=== PATIENT | female | born 1985 | race Caucasian/White ===

== ENCOUNTER 2017-11-01 19:27 | Emergency (ER) | payer OTHER ==
[~2017-11-01] VITALS: Ht 175.3 cm; Wt 72.6 kg
[~2017-11-01 19:27] MED LIST: ATIVAN1 M1 PO; AVIANE-28 TABL1 EACH PO; FOLIC ACID 1 MG PO; MAGNESIUM500 M2 PO; MULTI VITAMINS1 TAB PO; NEURONTIN300 M1 PO; PREDNISONE10 M2 PO; VITAMIN B1100 MG PO
--- NOTE | 2017-11-01 20:24 | ED PSYCHIATRIC COMPLAINT ---
History of Present Illness General Chief Complaint: ETOH/Drug Related Complaint Stated Complaint: "DETOX" Source: patient, old records Exam Limitations: no limitations Vital Signs & Intake/Output Vital Signs & Intake/Output Vital Signs Date Time Temp Pulse Resp B/P B/P Pulse O2 O2 Flow FiO2 Mean Ox Delivery Rate 11/02 0649 98.4 84 20 109/80 11/02 0648 98.4 84 20 109/80 100 Room Air Room Air 11/02 0050 132 11/01 2310 98.1 114 18 130/88 11/01 2304 98.1 114 16 130/88 98 Room Air 11/01 2199 97.4 127 18 122/86 99 Room Air 11/01 2053 98.3 128 16 112/86 100 Room Air 11/01 2049 98.3 128 20 112/96 11/01 2045 Room Air 11/01 194 98.1 126 18 137/67 98 Room Air ED Intake and Output 11/02 0000 11/01 1200 Intake Total 200 Output Total Balance 200 Intake, Oral 200 Patient 160 lb Weight Allergies Coded Allergies: No Known Allergies (12/22/15) Reconcile Medications Lorazepam (Ativan) (Unknown Strength) TABLET (Unknown Dose) PO AD PRN ANXIETY (Reported) Triage Note: PT TO TRIAGE FROM HOME REQUESTING ETOH DETOX. LAST DETOX IN 2016. REPORTS NOT ALWAYS A DAILY DRINKING AND STATES "ONLY A LITTLE TODAY." PT POOR HISTORIAN, UNABLE TO GIVE MUCH DETAIL ABOUT ETOH CONSUMPTION BUT STATES LAST DRINK 4-5 HOURS AGO. DENIES ANY OTHER ILLICIT DRUG USE. PT CALM AND COOPERATIVE WITH FAMILY PRESENT. HAS STRONG SUPPORT SYSTEM AT HOME AND MOTIVATED FOR HELP. POLICIES AND PROCEDURES EXPLAINED WITH PATIENT AND FAMILY. Triage Nurses Notes Reviewed? yes Onset: Just prior to arrival Duration: hour(s):, constant, continues in ED Timing: recent history Severity: moderate, severe Associated Symptoms: anxiety, impaired concentration LMP (ages 10-50): unknown : No Patient currently breastfeeds: No HPI: Patient presents for alcohol detox as it is been affecting her interpersonal relationships and work. She reports her last drink was several hours prior to admission. She complains of anxiety nausea feeling jittery and shaking with palpitations. She denies alcohol withdrawal seizures. Denies fever chills vomiting diarrhea chest pain cough shortness breath headache dysuria rash bleeding suicidal ideation homicidal ideation hallucination (Se ROCHEDino) Past History Travel History Traveled to [place] past 21 day No Medical History Any Pertinent Medical History? see below for history Neurological: DEPRESSION,ANXIETY EENT: NONE Cardiovascular: SVT Respiratory: NONE Hepatic: NONE Renal: NONE Musculoskeletal: NONE Psychiatric: alcohol dependence, ? depressive disorder NOS Substance-induced mood disorder Endocrine: NONE Blood Disorders: NONE Cancer(s): NONE CHARGE WEIGHER/Reproductive: NONE History of MRSA: No History of VRE: No History of CDIFF: No Surgical History Surgical History: non-contributory Psychosocial History Who do you live with Family Services at Home None What is your primary language Togolese Tobacco Use: Never used ETOH Use: heavy use Family History Family History, If Any: Relation not specified for: *No pertinent family history Hx Contributory? No (Dino Saez MD) Review of Systems Review of Systems Constitutional: Reports: see HPI, malaise. EENTM: Reports: no symptoms. Respiratory: Reports: no symptoms. Cardiovascular: Reports: no symptoms. GI: Reports: see HPI, nausea. Genitourinary: Reports: no symptoms. Musculoskeletal: Reports: no symptoms. Skin: Reports: no symptoms. Neurological/Psychological: Reports: see HPI, anxiety, emotional problems. Hematologic/Endocrine: Reports: no symptoms. Immunologic/Allergic: Reports: no symptoms. All Other Systems: Reviewed and Negative (Dino Saez MD) Physical Exam Physical Exam General Appearance: well developed/nourished, alert, awake, anxious, mild distress Head: atraumatic, normal appearance Eyes: Bilateral: normal appearance, PERRL, EOMI. Ears, Nose, Throat: normal pharynx, normal ENT inspection, hearing grossly normal Neck: normal inspection, supple, full range of motion, no midline tenderness Respiratory: normal breath sounds, chest non-tender, no respiratory distress, quiet respiration, lungs clear Cardiovascular: regular rate/rhythm, normal peripheral pulses, norml femoral pulses equa Gastrointestinal: soft, non-tender Extremities: normal range of motion, no ligament instability Neurological/Psychiatric: no motor/sensory deficits, awake, alert, anxious, program support assistant II-XII nml as tested, oriented x 3 Appearance/Memory/Insight: disheveled, impaired insight Behavoir/Eye Contact/Speech: cooperative, normal speech Skin: intact, normal color, warm/dry SAD PERSONS Done? patient not suicidal (Dino Saez MD) Progress Differential Diagnosis: drug intoxication, drug overdose, drug withdrawal, electrolyte abnormality, hypoglycemia Plan of Care: Orders Procedure Date/time Status Regular Diet 11/02 B Active URINE 11/01 2003 Complete CIWA 11/01 1939 Active URINE DRUG SCREEN FOR ER ONLY 11/01 1939 Complete ETHANOL 11/01 1939 Complete COMPREHENSIVE METABOLIC PANEL 11/01 1939 Complete CBC WITHOUT DIFFERENTIAL 11/01 1939 Complete Laboratory Tests 11/01/172134: Urine Opiates Screen < 100.00, Methadone Screen < 40, Barbiturate Screen < 60, Ur Phencyclidine Scrn < 6.00, Amphetamines Screen < 100, U Benzodiazepines Scrn < 85, Urine Cocaine Screen < 50, Urine Cannabis Screen < 5.00, Urine Test NEGATIVE 11/01/172034: Anion Gap 22 H, Estimated GFR > 60, BUN/Creatinine Ratio 13.8, Glucose 114 H, Calcium 9.7, Total Bilirubin 0.8, AST 39 H, ALT 41, Alkaline Phosphatase 65, Total Protein 9.0 H, Albumin 5.4 H, Globulin 3.6, Albumin/Globulin Ratio 1.5, CBC w Diff NO MAN DIFF REQ, RBC 4.07 L, MCV 95.5, MCH 32.4 H, RDW 13.1, MPV 7.8, Gran % 84.9 H, Lymphocytes % 11.7 L, Monocytes % 3.1, Eosinophils % 0, Basophils % 0.3, Absolute Granulocytes 7.3 H, Absolute Lymphocytes 1.0 L, Absolute Monocytes 0.3, Absolute Eosinophils 0, Absolute Basophils 0, PUBS MCHC 34.0, Serum Alcohol < 10.0 Hand-Off Endorsed To: Scottie Byrd MD Endorsed Time: 0700 Pending: other ([facility]?) (Dino Saez MD) Comments: 11/02/2017 7:46:52 AM 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 EtOH dependence. Requires reevaluation and disposition. 11/02/2017 8:41:58 AM patient has declined any further intervention here in the emergency department. She has also declined residential rehabilitation facility. She prefers to go to a rehabilitation facility in [place] that she is familiar with. She denies withdrawal seizures or any serious withdrawal symptoms when she has quit drinking previously. (Rochelle ROCHE,Scottie Dumont) Departure Departure Condition: Stable (Dino Saez MD) Departure Disposition: HOME OR SELF CARE Clinical Impression Primary Impression: Alcohol dependence Qualifiers: Substance use status: uncomplicated Qualified Code: F10.20 - Alcohol dependence, uncomplicated Secondary Impressions: Anxiety Referrals: Patient Has No Primary Care Dr (PCP/Family) Additional Instructions: Ween your alcohol use. Follow-up with detox program as soon as possible. Notify your primary care doctor of this emergency department visit and treatment plan. Return if any concerns or sudden worsening. Please note that there might be incidental findings in your evaluation that are unrelated to the current emergency department visit. Please notify your primary care doctor about this emergency department visit in order to obtain and review all of the testing performed so that these incidental findings can be monitored as needed. If you had an x-ray performed, please understand that some fractures may not be seen on the initial set of x-rays. If your symptoms persist you might need a repeat set of x-rays to check for such a fracture. If you had a laceration evaluated, please understand that foreign bodies such as glass or wood may not be visible to the naked eye or on plain x-rays. If the wound becomes red, swollen, increasingly more painful or if there is any drainage from the wound, please have it reevaluated by a physician for the possibility of a retained foreign body. If you're unable to follow up as outlined in the discharge instructions please return to the emergency department. Thank you for choosing the [facility] Emergency Department for your care. It was a pleasure to serve you today. Scottie Byrd M.D. [facility] Departure Forms: DETOX FACILITIES LIST General Discharge Information (Rochelle ROCHE,Scottie Dumont)
[2017-11-01 20:41] LABS: ABSOLUTE BASOPHIL COUNT 0 /CUMM (0.0-0.2); ABSOLUTE EOSINOPHIL COUNT 0 /CUMM (0.0-0.7); ABSOLUTE GRANULOCYTE CT 7.3 /CUMM (1.4-6.5); ABSOLUTE MONOCYTE COUNT 0.3 /CUMM (0.10-0.60); BASOPHIL % 0.3 % (0.0-2.0); EOSINOPHIL % 0 % (0-5); HEMATOCRIT 38.9 % (37-47); MEAN CORPUSCULAR HGB 32.4 PG (27.0-31.0); MEAN CORPUSCULAR VOLUME 95.5 FL (81.0-99.0); MEAN PLATELET VOLUME 7.8 FL (7.4-10.4); PLATELET COUNT 346 /CUMM (130-400); RBC DISTRIBUTION WIDTH 13.1 % (11.5-14.5); RED BLOOD CELL CT 4.07 /CUMM (4.20-5.40); WHITE BLOOD CELL COUNT 8.5 /CUMM (4.8-10.8)
[2017-11-01 20:50] LABS: GRANULOCYTE % 84.9 % (42.2-75.2)
[2017-11-01] MEDS ORDERED: ATIVAN0.5 M1 PO (21:51)
[2017-11-01] MEDS ORDERED: LEVSIN-SL0.125 MG SL (22:10)
[2017-11-01] MEDS ORDERED: ZOFRAN ODT4 M1 SL (22:10)
[2017-11-02 08:40] VITALS: BP 121/78
== END 2017-11-02 09:42 ==
LOC: ERH 19:27
PROVIDERS: Physician Assistant Medical
DX: F10.20 Alcohol dependence, uncomplicated (principal); F41.9 Anxiety disorder, unspecified
CPT/HCPCS: 80307; 81025; 96374; 96375; G0480